=== PATIENT | female | born 1985 | race Caucasian/White ===

== ENCOUNTER → 2016-12-10 | Outpatient (CLI) | payer BC ==
[2016-12-10 08:46] LABS: HEMATOCRIT 35.7 % (37.0-47.0); HEMOGLOBIN 12.3 g/dL (12.0-16.0); MEAN CORPUSCULAR HEMOGLOBIN 31.4 PG (27-31); MEAN CORPUSCULAR HGB CONC 34.5 g/dL (33-37); MEAN PLATELET VOLUME 9.4 FL (7.4-12.2); RDW COEFFICIENT OF VARIATION 12.8 % (11.5-14.5); RED BLOOD COUNT 3.92 10^6/uL (4.20-5.40); WHITE BLOOD COUNT 6.68 10^3/uL (4.8-10.8)
== END ==
LOC: LAB 07:30
PROVIDERS: ATTEND Family Medicine
DX: Z36 Encounter for antenatal screening of mother (principal); Z3A.27 27 weeks gestation of pregnancy
CPT/HCPCS: 36415; 82950; 84443; 85027

== ENCOUNTER → 2016-12-14 | Outpatient (CLI) | payer BC | LOC: LAB 06:30 | PROVIDERS: ATTEND Family Medicine | DX: Z36 Encounter for antenatal screening of mother (principal); Z3A.27 27 weeks gestation of pregnancy | CPT/HCPCS: 36415; 82951; 82952 ==

== ENCOUNTER → 2017-02-04 | Outpatient (CLI) | payer BC ==
--- NOTE | 2017-02-04 15:40 | DI ---
LIMITED OBSTETRICAL ULTRASOUND, 02/04/2017 10:46 AM Clinical History: Uterine size-date discrepancy, third trimester. Size smaller than dates. Previous Exam: 10/23/2016. ADJUSTED LMP: 06/05/2016. There is a single live IUP currently in vertex presentation. Amnionic fluid content is normal. Amniot ic fluid index is 18.2 cm. activity is observed as follows: Cardiac, extremity, and respiratory . The placenta is anterior corpus and Grade 1. heart rate varies between 136-171 beats/minute a nd regular. Cord Doppler ultrasound shows diastolic flow. Systolic/diastolic ratios are 2.3, 2.9, 2.8 , 2.5, and 2.9. BPD, HC, AC, and FL measurements are 88 mm, 317 mm, 301 mm, and 58 mm, respectively. These measurements correspond to EGA values of 35 weeks 4 days, 35 weeks 5 days, 34 weeks 1 day, and 30 weeks 3 days, respectively. Composite EGA is 34 weeks 0 days. The US EDC is 03/18/2017. EDC by [facility] LMP is 03/12/2017. HC/AC ratio is normal at 1.05. FL/BPD and FL/AC ratios are 0.66 and 0.19, resp ectively and both of these values are below normal. LMP percentile is 11%, with the femur length paul urement being in less than the 2 percentile. Estimated weight is 2166 g, plus or minus, 316 g. Readin. Single live fetus with vertex presentation and normal amniotic fluid content. Amniotic fluid inde x is 18.2 cm. Placenta is anterior corpus and grade 1. 2. The composite EGA is 34 weeks 0 days with an ultrasound EDC of 03/18/2017. Based on adjusted LMP o f 06/05/2016, the EDC would be 03/12/2017. 3. Asymmetric IUGR is suspected with the abnormal FL/BPD and FL/AC ratios and femur length measureme nt being less than the 2 percentile ranking. 4. Cord Doppler ultrasound is normal. 5. Estimated weight is 2166 g, plus or minus, 316 g. LMP percentile is 11%.
== END ==
LOC: US 10:44
PROVIDERS: ATTEND Family Medicine
DX: O26.843 Uterine size-date discrepancy, third trimester (principal); Z3A.34 34 weeks gestation of pregnancy
CPT/HCPCS: 76815

== ENCOUNTER 2017-02-15 05:15 | Inpatient (IN) | payer BC ==
[2017-02-15] MEDS ORDERED: NORMAL SALINE 10 ML SYRINGE FLUSH IVP PRN ×3 (05:19→13:24)
[2017-02-15] MEDS: Lactated Ringers-OB Dept 1,000 ML PRIMARY IV SCH ×2 (06:10→06:40)
[2017-02-15] MEDS ORDERED: Sodium Chloride 0.9% 1,000 ML ONE (10:10)
[2017-02-15] MEDS ORDERED: TERBUTALINE SULFATE 1 MG/1 ML SDV ONE (10:28)
[2017-02-15] MEDS ORDERED: TERBUTALINE SULFATE 1 MG/1 ML SDV SUBCUT ONE (10:40)
[2017-02-15] MEDS ORDERED: Sodium Chloride 0.9% 1,000 ML PRIMARY IV SCH (10:45)
[2017-02-15] MEDS ORDERED: ONDANSETRON 4 MG/2 ML VIAL ONE (10:54)
[2017-02-15] MEDS ORDERED: ONDANSETRON 4 MG/2 ML VIAL IVP ONE (11:00)
[2017-02-15 11:30] LABS: BILIRUBIN,URINE NEGATIVE (NEG); CLARITY,URINE CLEAR (CLEAR); COLOR,URINE YELLOW; GLUCOSE, URINE (UA) NEGATIVE (NEG); NITRATE,URINE NEGATIVE (NEG); OCCULT BLOOD,URINE NEGATIVE (NEG); PH,URINE 7.5 (5.0-8.5); PROTEIN,URINE NEGATIVE (NEG); URINE SAMPLE TYPE CLEAN CATCH URINE; UROBILINOGEN,URINE 0.2 EU/dL (0.2)
[2017-02-15] MEDS ORDERED: Lactated Ringers 1,000 ML PRIMARY IV ONE (11:40)
[2017-02-15] MEDS ORDERED: CITRIC ACID/SODIUM CITRATE 30 ML CUP PO ONE (11:40)
[2017-02-15] MEDS ORDERED: Metoclopramide Inj 10 MG/2 ML VIAL IV ONE (11:40)
[2017-02-15] MEDS ORDERED: CefOXitin Inj 2 GM in Sodium Chloride 0.9% 100 ML IV ONE (11:40)
[2017-02-15] MEDS ORDERED: Famotidine Inj 20 MG in Normal Saline Flush 10 ML IVP ONE (11:40)
[2017-02-15] MEDS ORDERED: LIDOCAINE W/ SODIUM BICARB 0.5 ML SYR SUBD PRN (11:40)
[2017-02-15] MEDS ORDERED: Oxytocin 20 Units + LR 1,000 ML IV SCH ×2 (11:45→14:10)
[2017-02-15] MEDS ORDERED: Lactated Ringers 1,000 ML PRIMARY IV SCH ×2 (11:45→13:30)
[2017-02-15] MEDS ORDERED: FAMOTIDINE 20 MG/2 ML VIAL IVP ONE (11:46)
[2017-02-15] MEDS ORDERED: fentaNYL Inj 100 MCG/2 ML VIAL ONE (11:46)
[2017-02-15] MEDS ORDERED: OXYTOCIN 10 UNIT/1 ML ONE ×2 (11:47→12:53)
[2017-02-15] MEDS ORDERED: Sodium Chloride 0.9% 100 ML IV ONE (11:47)
[2017-02-15 12:03] LABS: HEMATOCRIT 35.1 % (37.0-47.0); HEMOGLOBIN 11.8 g/dL (12.0-16.0); MEAN CORPUSCULAR HEMOGLOBIN 30.2 PG (27-31); MEAN CORPUSCULAR HGB CONC 33.6 g/dL (33-37); MEAN CORPUSCULAR VOLUME 89.8 FL (81-99); MEAN PLATELET VOLUME 9.5 FL (7.4-12.2); RED BLOOD COUNT 3.91 10^6/uL (4.20-5.40)
[2017-02-15] MEDS ORDERED: fentaNYL Inj 100 MCG/2 ML VIAL IVP ONE (12:10)
[2017-02-15] MEDS ORDERED: ePHEDrine Inj 50 MG/ML AMP ONE (12:42)
[2017-02-15] MEDS ORDERED: KETOROLAC 30 MG/1 ML VIAL ONE (13:01)
[2017-02-15] MEDS ORDERED: Nalbuphine Inj 20 MG/ML Ampule IVP PRN ×2 (13:24→14:10)
--- NOTE | 2017-02-15 13:25 | CRNA.PROCE ---
Central Neuraxis Block Placemt - - Safety Measures: Time Out Taken, Site Verified - - Type of Block: Subarachnoid Reason for Block: Surgical Moniters Used During Block: EKG, SPO2, NIBP Skin Prep Used: ChloroPrep Draped: No Skin Infiltration - Enter Amount Used in Comment Field: 1% Xylocaine (mL): Yes ( skin wheal) Spinal Needle Used: 25 Ping 80 mm Local Anesthetic - Enter Amount Used in Comment Field: 0.75 % Bupivacaine with Dextrose (ml): Yes (15mg(2ml)) Additive Used - Enter Amount Used in Comment Field: Fentanyl (mcg): Yes (15mcg) Bioclusive Dressing Applied: No
[2017-02-15] MEDS ORDERED: diphenhydrAMINE 25 MG CAPSULE PO PRN (14:10)
[2017-02-15] MEDS ORDERED: ONDANSETRON 4 MG/2 ML VIAL IVP PRN (14:10)
[2017-02-15] MEDS ORDERED: METHYLERGONOVINE MALEATE 0.2 MG/1 ML VIAL IM PRN (14:10)
[2017-02-15] MEDS ORDERED: Famotidine Inj 20 MG in Normal Saline Flush 10 ML IVP PRN (14:10)
[2017-02-15] MEDS ORDERED: Carboprost Inj 250 MCG/ML AMP IM PRN (14:10)
[2017-02-15] MEDS ORDERED: CALCIUM CARBONATE 500 MG (TUMS) CHEWABLE TABLET PO PRN (14:10)
[2017-02-15] MEDS ORDERED: diphenhydrAMINE 50 MG/1 ML VIAL IV PRN (14:10)
[2017-02-15] MEDS ORDERED: Methylergonovine Tab 0.2 MG TAB PO PRN (14:10)
[2017-02-15] MEDS ORDERED: OXYTOCIN 10 UNIT/1 ML IM ONE (14:10)
[2017-02-15] MEDS ORDERED: DIPH,PERTUSS,TET(ADACEL) VAC/PF 0.5 ML (Tdap) IM SCH (14:10)
[2017-02-15] MEDS ORDERED: MISOPROSTOL 200 MCG TABLET RECTAL ONE (14:10)
[2017-02-15] MEDS ORDERED: LANOLIN HPA 40 GM TUBE TOPICAL PRN (14:10)
[2017-02-15] MEDS ORDERED: Naloxone Inj 0.01 MG, Sodium Chloride 0.9% vial 1 ML IVP PRN ×2 (14:10)
[2017-02-15] MEDS: oxyCODONE-ACETAMINOPHEN 5-325 TAB PO PRN ×3 (14:43→23:00)
[2017-02-15] MEDS: HYDROmorphone 2 MG/1 ML IV PRN ×2 (15:31→16:50)
[2017-02-15] MEDS: D5-LR 1,000 ML PRIMARY IV SCH (15:34)
[2017-02-15] MEDS: KETOROLAC 30 MG/1 ML VIAL IVP PRN (18:58)
[2017-02-15] MEDS: NORMAL SALINE 10 ML SYRINGE FLUSH IVP PRN (18:58)
[2017-02-16] MEDS: KETOROLAC 30 MG/1 ML VIAL IVP PRN ×3 (00:53→13:05)
[2017-02-16] MEDS: NORMAL SALINE 10 ML SYRINGE FLUSH IVP PRN ×2 (00:54→07:08)
[2017-02-16] MEDS: oxyCODONE-ACETAMINOPHEN 5-325 TAB PO PRN ×6 (03:00→22:50)
[2017-02-16] MEDS: D5-LR 1,000 ML PRIMARY IV SCH ×3 (04:12→22:50)
[2017-02-16 05:48] LABS: HEMATOCRIT 30.3 % (37.0-47.0); MEAN CORPUSCULAR HEMOGLOBIN 29.8 PG (27-31); MEAN CORPUSCULAR VOLUME 90.2 FL (81-99); MEAN PLATELET VOLUME 8.8 FL (7.4-12.2); RED BLOOD COUNT 3.36 10^6/uL (4.20-5.40)
[2017-02-16] MEDS: Prenatal Multivitamin Tab 1 TAB TAB PO SCH (08:37)
[2017-02-16] MEDS: Senna/Docusate Tab 1 TAB TAB PO SCH ×2 (08:37→20:53)
[2017-02-16] MEDS: IBUPROFEN 800 MG TABLET PO PRN (19:08)
[2017-02-16] MEDS: Lactated Ringers-OB Dept 1,000 ML PRIMARY IV SCH (22:53)
[2017-02-17] MEDS: oxyCODONE-ACETAMINOPHEN 5-325 TAB PO PRN ×5 (02:12→20:59)
[2017-02-17] MEDS: Prenatal Multivitamin Tab 1 TAB TAB PO SCH (08:29)
[2017-02-17] MEDS: Senna/Docusate Tab 1 TAB TAB PO SCH ×2 (08:29→20:59)
[2017-02-17] MEDS: IBUPROFEN 800 MG TABLET PO PRN ×3 (09:20→23:14)
[2017-02-17] MEDS ORDERED: Sodium Chloride 0.9% 250 ML IV ONE (10:54)
--- NOTE | 2017-02-17 22:42 | OB.PROGRES ---
Subjective Post Op Day: 2 Pain Management: PO Balderrama Catheter: No Flatus: Yes Diet: Regular Feeding Method: Exculsively Ambulating: Yes Concerns / Additional Information: Doing well, has no concerns. Baby has improved enough to be transferred out of the nursery. Objective - General General Appearance: POSITIVE: No Acute Distress, Cooperative - Cardiovacular Cardiovascular Exam: POSITIVE: RRR, No Murmur Edema: +1 Pedal Edema Extremities: Negative Carol's - Bilaterally - Respiratory Respiratory Exam: POSITIVE: Clear to Auscultation - Bilaterally, Breathing Non Labored - Abdomen Abdominal Wound Assessment: Silverlone Dressing Assesstment / Plan (1) Status post repeat low transverse section Current Visit: Yes Status: Acute Assessment / Plan: -pt has been pumping as baby has been NPO. Baby will be starting feeds today, mom plans to breast feed. -rh positive. -rubella immune. -will keep pt another noc to work on breast feeding. -d/c likely tomorrow.
[2017-02-18] MEDS: oxyCODONE-ACETAMINOPHEN 5-325 TAB PO PRN ×3 (01:27→11:36)
[2017-02-18] MEDS: IBUPROFEN 800 MG TABLET PO PRN (07:15)
[2017-02-18 08:51] VITALS: RESP 18; TEMP 98.2
[2017-02-18] MEDS: Senna/Docusate Tab 1 TAB TAB PO SCH (09:58)
[2017-02-18] MEDS: Prenatal Multivitamin Tab 1 TAB TAB PO SCH (09:58)
--- NOTE | 2017-02-18 09:58 | OB.OP.NOTE ---
Operative Report Surgeon: Elie Healy MD Electrical Technician Instructor: Rodolfo Curiel MD Anesthesia Type: Regional Anesthesia Provider: Ced Roper CRNA Surgery Date: 02/15/17 Preoperative Diagnosis: labor with previous section at 36 2/7 weeks. Postoperative Diagnosis: same, delivered Procedure: Repeat low transverse section Complications: none Estimated Blood Loss (mL): 800 Urine Output (mL): 100 Fluids: 1700 cc of Lactated Ringer's. Indications: We do not offer vaginal after section trials at our facility and the patient did not desire this. She is requesting a repeat section. Findings: male infant in cephalic presentation with normal, clear amniotic fluid. Description of Procedure: The patient was taken to the operating room where spinal anesthesia was found to be adequate. She was then prepared and draped in the normal sterile fashion in the dorsal supine position with a leftward tilt. A Pfannenstiel skin incision was then made with the scalpel and carried through to the underlying layer of fascia with Bovie. The fascia was incised in the midline and the incision extended laterally with the Bovie. The superior aspect of the fascial incision was then grasped with Radha clamps, elevated and the underlying rectus muscles dissected off bluntly. Attention was then turned to the inferior aspect of this incision which in a similar fashion was grasped with Radha clamps and the rectus muscles dissected off both bluntly and with the Bovie. The rectus muscle was then in the midline, and the peritoneum identified, tented up, and entered in blunt fashion. The peritoneal incision was then extended superiorly and inferiorly with good visualization of the bladder. The Leroy retractor was then inserted and the vesicouterine peritoneum was identified. The lower uterine segment incised in the transverse fashion with the scalpel. The uterine incision was then extended laterally blunt fashion. The infant's head was delivered atraumatically. The nose and mouth were suctioned with the bulb suction and the cord was clamped and cut. The infant was handed off to the awaiting nurse. Cord gases and cord blood were sent for analysis. The placenta was then removed manually; the uterus exteriorized, and cleared of all clots and debris. The uterine incision was repaired with 0 Vicryl in a running, locked fashion. A second layer of the same suture was used to obtain excellent hemostasis. The peritoneal cavity was then copiously irrigated with warm saline. The uterus was returned to the abdomen. The paracolic gutters were copiously irrigated with warm saline and a second look at the uterine incision continued to reveal excellent hemostasis. The peritoneum was closed with 3-0 Vicryl. The fascia was reapproximated with 0 PDS in a running fashion. The subcutaneous space was irrigated with copiously with warm saline and then closed first with 3-0 Vicryl and then more superficially with Insorb absorbable sutures. The skin was reapproximated with Steri-Strips and a Silverlon dressing applied. Fundal massage was completed with no clots in vaginal vault. The patient tolerated the procedure well. Sponge, lap, and needle counts were correct x2. Ancef was given preoperatively less than one hour prior to incision time. The patient was taken to the recovery room in stable condition. Patient Problems - Patient Problem List (1) Status post repeat low transverse section Current Visit: Yes Status: Acute
--- NOTE | 2017-02-20 10:12 | OB.PROGRES ---
Subjective Post Op Day: 1 Pain Management: PO Balderrama Catheter: No Flatus: Yes Diet: Regular Feeding Method: Exculsively (currently pumping as baby is still NPO with respiratory issues.) Ambulating: Yes Objective - General General Appearance: POSITIVE: No Acute Distress, Cooperative - Cardiovacular Cardiovascular Exam: POSITIVE: RRR, No Murmur Edema: +1 Pedal Edema Extremities: Negative Carol's - Bilaterally - Respiratory Respiratory Exam: POSITIVE: Clear to Auscultation - Bilaterally, Breathing Non Labored - Abdomen Bowel Sounds: Hypoactive Abdominal Wound Assessment: Silverlone Dressing - Fundus/Lochia/Perineum Uterus Consistency: Firm Uterus Position: POSITIVE: At Umbilicus Assesstment / Plan (1) Status post repeat low transverse section Status: Acute Assessment / Plan: -routine post-operative cares. -currently pumping; anticipate that baby will be able to nurse in the next 24 hours. -rh positive. -rubella immune. -d/c home in 1-2 days if she continues to do well.
--- NOTE | 2017-02-20 10:17 | DCSUMMARY ---
Hospitalization Summary Admit Date: 02/15/17 Discharge Date: 02/18/17 Primary Diagnosis:: Labor Secondary Diagnosis:: Previous section Primary Surgery and Date: Repeat section on 02/15/17 Delivery Type: Hospital Course: Pt presented with painful, regular uterine contractions early on February 15. She was given 2 liters of IVF and was feeling better with significant decrease in her contraction frequency (in fact, she was just having irritability when she left the labor and delivery unit). She presented to the office for a routine visit an hour later and was again having painful contractions, which were under 5 minutes apart with associated nausea, vomiting and diarrhea (x1 at home). She was again given IVF and 1 dose of terbutaline given her early term status at 36 weeks, but her contractions did not del. She was taken for repeat section. / Postop Complications: The patient had a normal post-operative course with no immediate complications. Complications: Baby was admitted to the critical care nursery with respiratory distress. An IV was placed to give IV dextrose. He eventually transitioned off CPAP and moved to full feeds. He was moved out of the critical nursery on DOL #2. Exam - Vitals Vital Signs: Vital Signs Temperature 98.2 F Temperature Source Oral Pulse Rate [Pulse Oximeter] 89 Pulse Rate 89 Respiratory Rate 18 Blood Pressure [Left Arm] 113/79 Blood Pressure [Right Arm] 104/65 Blood Pressure 91/41 Pulse Ox 95 Oxygen Delivery Method Room Air Height 5 ft 1 in Weight 149 lb - General General Appearance: POSITIVE: No Acute Distress, Cooperative - Head Head Exam: POSITIVE: Normal Inspection - Eye Eye Exam: POSITIVE: Normal Appearance - Neck Neck Exam: POSITIVE: Normal Inspection - Respiratory Respiratory Exam: POSITIVE: Clear to Auscultation - Bilaterally, Breathing Non Labored - Cardiovascular Cardiovascular Exam: POSITIVE: RRR, No Murmur - GI/Abdominal GI/Abdominal Exam: POSITIVE: Normal Bowel Sounds, Non Tender, Non Distended, Soft - Extremities Extremities Exam: POSITIVE: Normal Inspection, Normal Capillary Refill, Negative Carol's sign - Neurological Neurological Exam: POSITIVE: Alert, Oriented x 3 - Psychiatric Psychiatric Exam: POSITIVE: Normal Affect, Normal Mood - Integumentary Integumentary Exam: POSITIVE: Normal Color, Warm, Dry Patient Problems - Patient Problem List (1) Status post repeat low transverse section Status: Acute
== END 2017-02-18 11:51 | disposition home or self-care (01) | DRG 766 ==
LOC: OBOP 05:15 → OBIP 11:40 → OBOR 12:19 → MED/SURG 14:00 → OBIP 15:11
PROVIDERS: ADMIT Family Medicine; ATTEND Family Medicine
PROC: 10D00Z1 Extraction of Products of Conception, Low, Open Approach (ICD-10-PCS; principal; 2017-02-15 12:15)
DX: O34.211 Maternal care for low transverse scar from previous cesarean delivery (principal); N85.8 Other specified noninflammatory disorders of uterus; Z3A.36 36 weeks gestation of pregnancy; Z37.0 Single live birth
CPT/HCPCS: 36415; 59025; 81003; 85027; 86850; 86900; 86901; 87088; 87186; 94150; 94761; 99211; J1170; J1885; J2405; J2590; J2765; J3010; J3105; J7030; J7050; J7120

== ENCOUNTER → 2017-02-15 | Outpatient (CLI) | payer BC | LOC: MOB LAB 09:18 | PROVIDERS: ATTEND Family Medicine | DX: Z36 Encounter for antenatal screening of mother (principal); Z3A.36 36 weeks gestation of pregnancy | CPT/HCPCS: 87150 ==

== ENCOUNTER → 2017-03-05 | Outpatient (CLI) | payer BC ==
[2017-03-05 15:16] LABS: BILIRUBIN,URINE NEGATIVE (NEG); COLOR,URINE YELLOW; GLUCOSE, URINE (UA) NEGATIVE (NEG); NITRATE,URINE NEGATIVE (NEG); OCCULT BLOOD,URINE LARGE (NEG); PROTEIN,URINE NEGATIVE (NEG); UROBILINOGEN,URINE 0.2 mg/dL (0.2)
[2017-03-05 15:25] LABS: CLARITY,URINE CLEAR (CLEAR)
[2017-03-05 15:26] LABS: BACTERIA,URINE RARE; SQUAMOUS EPITHELIAL CELL,UR RARE; URINE SAMPLE TYPE CLEAN CATCH URINE; WBC,URINE 20-30
== END ==
LOC: MOB LAB 11:00
PROVIDERS: ATTEND Student in an Organized Health Care Education/Training Program
DX: R30.0 Dysuria (principal); R31.9 Hematuria, unspecified
CPT/HCPCS: 81001; 87077; 87088; 87186

== ENCOUNTER → 2017-03-25 | Outpatient (CLI) | payer BC ==
--- NOTE | 2017-03-25 09:40 | DI ---
US PELVIC LIMITED (NON-OB),03/25/2017 9:03 AM: Clinical History: Pain at surgical incision. Previous Exam: None at this facility. Findings: Multiple superficial grayscale sonographic images are obtained through the lower abdomen demonstratin g no evidence of fluid collection along the scar. Impression: No obvious abnormality of the region of the scar.
== END ==
LOC: US 08:58
PROVIDERS: ATTEND Nurse Practitioner Family
DX: R20.8 Other disturbances of skin sensation (principal); Z98.890 Other specified postprocedural states
CPT/HCPCS: 76857